=== PATIENT | female | born 1970 | race Two or more races ===

== ENCOUNTER 2019-03-26 12:52 | Outpatient (CLI) | payer OTHER | END 2019-03-26 13:25 | disposition home or self-care (01) | LOC: TOM 12:52 | DX: R19.4 Change in bowel habit (principal); Z12.11 Encounter for screening for malignant neoplasm of colon; K56.51 Intestinal adhesions [bands], with partial obstruction ==

== ENCOUNTER 2022-11-07 09:36 | Outpatient (CLI) | payer OTHER | END 2022-11-07 09:48 | disposition home or self-care (01) | LOC: RAD 09:36 | PROVIDERS: ATTEND Orthopaedic Surgery | DX: M25.561 Pain in right knee (principal); M25.551 Pain in right hip; M25.552 Pain in left hip ==

== ENCOUNTER 2022-11-19 08:08 | Outpatient (CLI) | payer OTHER ==
[2022-11-19 10:08] LABS: HEMATOCRIT 37.6 % (36.0-45.00); HEMOGLOBIN 12.9 g/dL (12.0-15.00); MEAN CELL VOLUME 96.5 fL (80.00-100.00); MEAN CORPUSCULAR HGB CONC 34.2 g/dl (32.0-36.0); PLATELET COUNT 182 K/uL (150-450); RED CELL DISTRIBUTION WIDTH 13.7 % (11.5-14.5)
== END 2022-11-19 08:11 | disposition home or self-care (01) ==
LOC: LAB 08:08
PROVIDERS: ATTEND Orthopaedic Surgery
DX: D64.89 Other specified anemias (principal); E88.89 Other specified metabolic disorders; D68.8 Other specified coagulation defects; N39.0 Urinary tract infection, site not specified; A49.02 Methicillin resistant Staphylococcus aureus infection, unspecified site; E11.9 Type 2 diabetes mellitus without complications; Z76.89 Persons encountering health services in other specified circumstances; I49.9 Cardiac arrhythmia, unspecified; I10 Essential (primary) hypertension